=== PATIENT | male | born 1995 | race Two or more races ===

== ENCOUNTER 2017-11-21 00:21 | Emergency (ER) | payer OTHER ==
[~2017-11-21] VITALS: Ht 182.9 cm; Wt 84.8 kg
[2017-11-21 00:23] VITALS: BP 139/78
[2017-11-21] MEDS ORDERED: NEOMYCIN-BACITRACIN-POLYM 15GM TOP OINT TOP ONE (01:00)
[2017-11-21] MEDS ORDERED: NEOMYCIN-BACITRACIN-POLYM UNITDOSE PKG TOP OINT TOP ONE ×2 (01:01→01:15)
[2017-11-22 13:42] LABS: Hepatitis B Surface Antibody Positive
[2017-11-22 13:54] LABS: Hepatitis B Surface Antigen Negative (Negative)
== END 2017-11-21 02:05 | disposition home or self-care (01) ==
LOC: ER 00:29
DX: S71.151A Open bite, right thigh, initial encounter (principal); Z77.21 Contact with and (suspected) exposure to potentially hazardous body fluids; W50.3XXA Accidental bite by another person, initial encounter; Y93.89 Activity, other specified; Y99.8 Other external cause status; Y92.89 Other specified places as the place of occurrence of the external cause
CPT/HCPCS: 36415; 86703; 86706; 86803; 87340